=== PATIENT | female | born 1970 | race Hispanic/Latino ===

== ENCOUNTER → 2022-12-10 | Day surgery (SDC) | payer OTHER ==
[~2022-12-10] MED LIST: CRESTOR10 MG PO; FENTANYL CITRATE/PF 100MCG/2 ML INJ ONE; HYDROCHLOROTH12.5 MG PO; LACTATED RINGER'S 1,000 ML ONE
[2022-12-10 11:35] VITALS: BP 125/80; PULSE 62; RESP 18; O2SAT 98
== END | disposition home or self-care (01) ==
LOC: OR 08:46
PROVIDERS: ATTEND Internal Medicine Gastroenterology
DX: Z12.11 Encounter for screening for malignant neoplasm of colon (principal); K63.5 Polyp of colon; K64.8 Other hemorrhoids; Z71.3 Dietary counseling and surveillance; I10 Essential (primary) hypertension; Z71.89 Other specified counseling; E78.5 Hyperlipidemia, unspecified; R73.03 Prediabetes; I83.90 Asymptomatic varicose veins of unspecified lower extremity; Z01.810 Encounter for preprocedural cardiovascular examination; Z79.899 Other long term (current) drug therapy; Z68.24 Body mass index [BMI] 24.0-24.9, adult
CPT/HCPCS: 45380; 93005; J3010; J7121; 45378